=== PATIENT | female | born 1940 | race Hispanic/Latino ===

== ENCOUNTER 2019-01-16 21:34 | Emergency (ER) | payer MEDICARE, OTHER ==
[~2019-01-16] VITALS: Ht 152.4 cm; Wt 59.0 kg
[2019-01-16] MEDS ORDERED: HYDROCODONE/APAP 5MG-325MG TAB PO ONE (23:15)
== END 2019-01-16 23:40 | disposition home or self-care (01) ==
LOC: FSED 21:34
DX: B02.9 Zoster without complications (principal)